=== PATIENT | female | born 1950 | race Caucasian/White ===

== ENCOUNTER 2016-07-02 08:33 | Inpatient (IN) | payer MEDICARE, SELFPAY ==
[~2016-07-02 08:33] MED LIST: ALDACTONE50 M1 PO; AMBIEN5 M1 PO; ASPIRIN325 M3 PO; ATIVAN2 M1 PO; CHANTIX1 M1 PO; CIPROFLOXACIN250 M1 PO; CRESTOR10 MG/TAB PO; CYCLOBENZAPRINE10 M1 PO; GLUCOPHAGE500 M3 PO; HYDROCODON-ACE1 EA16 PO; HYDROCODON-ACE1 EA17 PO; LASIX40 M1 PO; LORAZEPAM2 M1 PO; MOBIC7.5 M2 PO; MULTIVITAMINS1 EAC6 PO; NITROFURANTOIN100 M3 PO; OMEPRAZOLE20 M4 PO; POTASSIUM CHLO10 ME2 PO; ROSUVASTATIN CA10 MG PO; ROXICODONE5 M2 PO; STOOL SOFTENER1 EAC4 PO; STOOL SOFTENER100 M2 PO; TRICOR145 M2 PO; TYLENOL325 M2 PO; ULTRAM50 M1 PO; VITAMIN D31000 UNI3 PO
[2016-07-03 06:21] LABS: BASO % 0.1 % (0-2); EOS % 0.1 % (0-7); HCT-HEMATOCRIT 38.7 % (34.0-49.0); HGB-HEMOGLOBIN 12.8 gm/dl (12.0-15.5); IMMATURE GRANULOCYTES ABSOLUTE 0.03 tho/cmm (0-0.03); IMMATURE GRANULOCYTES PERCENT 0.2 % (0-0.3); LYMPH % 8.2 % (20-45); LYMPH ABSOLUTE COUNT 1.3 tho/cmm (0.8-4.5); MCH (MEAN CORPUSCULAR HGB) 31.6 pg (28.0-32.0); MCHC MEAN CORPUSCULAR HGB CONC 33.1 % (32.0-36.0); MCV (MEAN CELL VOLUME) 95.6 fl (82.0-96.0); MEAN PLATELET VOLUME 9.1 cmc (9.4-12.4); MONO % 7.6 % (0-12); MONOCYTE ABSOLUTE COUNT 1.2 tho/cmm (0.0-1.2); NEUTROPHIL ABSOLUTE COUNT 12.9 tho/cmm (1.6-8.0); NEUTROPHIL-AUTOMATED 12.9 tho/cmm (1.6-8.0); NEUTROPHILS % 83.8 % (40-80); PLATELET COUNT 175 tho/cmm (150-450); RED BLOOD COUNT 4.05 mil/cmm (4.00-5.20); RED CELL DISTRIBUTION WIDTH 14.8 % (12.4-16.4); WHITE BLOOD COUNT 15.3 tho/cmm (4.0-10.0)
[2016-07-05] MEDS ORDERED: ASPIRIN81 M1 PO (09:07)
[2016-07-05] MEDS ORDERED: ULTRAM50 M1 PO (09:08)
[2016-07-05] MEDS ORDERED: ROXICODONE5 M2 PO (09:09)
[2016-07-05] MEDS ORDERED: MOBIC7.5 M2 PO (09:09)
[2016-07-05] MEDS ORDERED: TYLENOL325 M2 PO (09:10)
== END 2016-07-05 10:35 | DRG 470 ==
LOC: SHSB 08:33 → ORE 10:29 → PACU 12:14 → 5EA 13:25
PROVIDERS: Family Medicine; ADMIT Orthopaedic Surgery Foot and Ankle Surgery
PROC: 0SRC0J9 Replacement of Right Knee Joint with Synthetic Substitute, Cemented, Open Approach (ICD-10-PCS; principal; 2016-07-02)
DX: M17.11 Unilateral primary osteoarthritis, right knee (principal); E11.9 Type 2 diabetes mellitus without complications; E87.6 Hypokalemia; F41.9 Anxiety disorder, unspecified; D72.829 Elevated white blood cell count, unspecified; Z79.84 Long term (current) use of oral hypoglycemic drugs
CPT/HCPCS: C1713; C1776; J0171; J0690; J1815; J1885; J2270; J2795; J7050